=== PATIENT | male | born 1945 | race Caucasian/White ===

== ENCOUNTER 2018-12-23 09:10 | Outpatient (CLI) | payer MEDICARE, BC ==
--- NOTE | 2018-12-24 08:50 | XRAY Report ---
Reason: PAIN IN RIGHT KNEE Procedure Date: 12/23/2018 Accession Number: [id number] / [id number] Procedure: XR - Knee 3 View RT CPT Code: FULL RESULT: EXAM: RIGHT KNEE RADIOGRAPHY EXAM DATE: 12/23/2018 09:35 AM. CLINICAL HISTORY: Right knee pain post fall 5 weeks ago. COMPARISON: None. TECHNIQUE: 3 views. FINDINGS: Bones: No fractures or bone lesions. Joints: No effusion. No subluxations. Soft Tissues: There are multiple subcutaneous surgical clips in the medial posterior knee and upper calf. No soft tissue swelling. IMPRESSION: Negative right knee radiography. RADIA
== END 2018-12-23 09:11 | disposition home or self-care (01) ==
LOC: DI 09:10
PROVIDERS: ATTEND Family Medicine
DX: M25.561 Pain in right knee (principal)

== ENCOUNTER 2019-05-24 10:47 | Outpatient (CLI) | payer MEDICARE, BC ==
--- NOTE | 2019-05-25 09:23 | CT Report ---
Reason: PAIN IN RIGHT KNEE Procedure Date: 05/24/2019 Accession Number: [id number] / [id number] Procedure: CT - LOWER EXTREMITY WO - RT CPT Code: FULL RESULT: EXAM: RIGHT KNEE CT WITHOUT CONTRAST EXAM DATE: 05/24/2019 11:21 AM. CLINICAL HISTORY: Pain in right knee. COMPARISON: 12/23/2018 radiograph. TECHNIQUE: Thin-section axial images were acquired of the knee without contrast. Post-processing: Coronal and sagittal reformats. Other: None. In accordance with CT protocol optimization, one or more of the following dose reduction techniques were utilized for this exam: automated exposure control, adjustment of mA and/or KV based on patient size, or use of iterative reconstructive technique. FINDINGS: Bones: No fractures. There is periarticular cyst formation in the posterior portion of the patella. Joints: Minimal tricompartmental osteophytes are present. There is a moderate knee effusion. Musculature: Normal. No fatty atrophy. Other: Arterial calcifications indicate atherosclerosis. Prepatellar subcutaneous edema is present. IMPRESSION: 1. Minimal osteoarthritis. RADIA
== END 2019-05-24 10:48 | disposition home or self-care (01) ==
LOC: DI 10:47
PROVIDERS: ATTEND Family Medicine
DX: M17.11 Unilateral primary osteoarthritis, right knee (principal)

== ENCOUNTER 2021-08-18 12:45 | Outpatient (CLI) | payer MEDICARE, BC ==
--- NOTE | 2021-08-18 16:02 | MRI Report ---
PROCEDURE: Angio Brain W/O (MRA) INDICATIONS: DIZZINESS AND GIDDINESS TECHNIQUE: Noncontrast axial 3-D [id number] MR angiogram, with 3-dimensional maximum intensity projection (M IP) reformats of the internal carotid arteries and posterior circulation then performed. COMPARISON: Correlation is made with the accompanying brain MRI, 08/18/2021 FINDINGS: Image quality: Excellent. Anterior circulation: Intracranial internal carotid arteries demonstrate normal size and intralumina l flow signal. The flow within the paired anterior cerebral arteries is normal and symmetric. The f low within the middle cerebral arteries is normal and symmetric. The anterior communicating artery i s seen. No stenoses, occlusions, or aneurysms. Posterior circulation: Visualized portions of the vertebral arteries demonstrate normal caliber, and join to form a normal appearing basilar artery. The flow within the posterior cerebral arteries is normal and symmetric. No stenoses, occlusions, or aneurysms. IMPRESSION: No significant intracranial arterial abnormalities are seen. Reviewed by: Luther Diop MD on 08/18/2021 3:00 PM [facility] Approved by: Luther Diop MD on 08/18/2021 3:00 PM [facility] Station ID: [id number]
--- NOTE | 2021-08-18 16:17 | MRI Report ---
PROCEDURE: Brain W/O INDICATIONS: DIZZINESS AND GIDDINESS TECHNIQUE: Noncontrast axial T1 spin echo, axial T2 fast spin echo, sagittal and axial FLAIR, coronal T2 fast sp in echo, axial gradient echo, axial diffusion and ADC through the brain. COMPARISON: None. FINDINGS: Image quality: Excellent. CSF Spaces: Basal cisterns are patent. No extra-axial fluid collections. Ventricles are normal in size and shape. Brain: Moderate atrophy and mild multifocal chronic ischemic change noted in the deep and subcortica l white matter. 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 No intracranial masses or hemorrha ge. Ortega/white matter interface is normal. Brainstem appears normal. Diffusion-weighted images dem onstrate no acute ischemic insult. No chronic ischemic insults. Normal intravascular flow voids are present. Skull and face: Calvarium has normal marrow signal. Orbits appear normal. Bilateral intraocular yue s replacements noted. Sinuses: Sinuses and mastoids are clear. IMPRESSION: 1. Atrophy and chronic ischemic change without acute infarct, hemorrhage or mass lesion. 2. 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
== END 2021-08-18 12:46 | disposition home or self-care (01) ==
LOC: DI 12:45
PROVIDERS: ATTEND Nurse Practitioner Family
DX: R42 Dizziness and giddiness (principal); I67.82 Cerebral ischemia; G31.89 Other specified degenerative diseases of nervous system

== ENCOUNTER 2023-01-08 08:19 | Outpatient (CLI) | payer MEDICARE, BC ==
--- NOTE | 2023-01-08 12:09 | XRAY Report ---
PROCEDURE: Knee 3 View LT INDICATIONS: PAIN OF LEFT KNEE JOINT TECHNIQUE: 3 views of the left knee(s) were acquired. COMPARISON: None. FINDINGS: Bones: No fractures or dislocations. Mild to moderate tricompartmental osteoarthritis is seen most n otably in medial femoral tibial compartment with joint space narrowing, subchondral sclerosis and mar ginal osteophyte formation. No patella subluxation. No suspicious bony lesions. Soft tissues: Moderate suprapatellar joint effusion is seen. No suspicious soft tissue calcificatio ns. IMPRESSION: Mild to moderate tricompartment osteoarthritis most notable in medial femoral tibial com partment. No fracture or dislocation. Moderate joint effusion. Reviewed by: Beto Wells MD on 01/08/2023 12:08 PM PST Approved by: Beto Wells MD on 01/08/2023 12:08 PM PST Station ID: [id number]
== END 2023-01-08 08:20 | disposition home or self-care (01) ==
LOC: DI.S 08:19
PROVIDERS: ATTEND Nurse Practitioner Family
DX: M17.12 Unilateral primary osteoarthritis, left knee (principal); M25.462 Effusion, left knee